=== PATIENT | female | born 1995 | race Caucasian/White ===

== ENCOUNTER → 2017-02-19 | Outpatient (REF) | payer BC | LOC: M SFHCWAGY 14:27 | PROVIDERS: ATTEND Nurse Practitioner Women's Health | DX: Z12.4 Encounter for screening for malignant neoplasm of cervix (principal) ==

== ENCOUNTER → 2019-09-09 | Outpatient (CLI) | payer BC ==
[2019-09-09 13:09] LABS: BASO % 0.5 % (0.0-1.0); EOS # 0.1 10^3/uL (0.0-0.5); EOS % 1.1 % (0.0-3.0); HEMATOCRIT 40.1 % (36.0-47.0); HEMOGLOBIN 13.6 g/dl (12.0-15.5); LYMPH # 1.9 10^3/uL (1.5-5.0); LYMPH % 23.7 % (24.0-44.0); MEAN CORPUSCULAR HGB CONC 33.9 g/dl (32.0-36.5); MEAN CORPUSCULAR VOLUME 91.3 fl (80.0-96.0); MONO # 0.6 10^3/uL (0.0-0.8); MONO % 7.9 % (0.0-5.0); NEUTROPHILS # 5.3 10^3/uL (1.5-8.5); NEUTROPHILS % 66.4 % (36.0-66.0); PLATELET COUNT, AUTOMATED 216 10^3/uL (150-450); RED BLOOD COUNT 4.39 10^6/uL (4.00-5.40)
[2019-09-09 14:43] LABS: HEPATITIS C VIRUS ABY INDEX 0.1 INDEX (<0.8); HIV 1&2 SCREEN CENTAUR NEGATIVE (NEGATIVE); RUBELLA IgG QUALITATIVE IMMUNE (IMMUNE)
== END ==
LOC: M SMT 11:53
PROVIDERS: ATTEND Advanced Practice Midwife
DX: Z3A.09 9 weeks gestation of pregnancy (principal); Z34.81 Encounter for supervision of other normal pregnancy, first trimester

== ENCOUNTER → 2019-10-07 | Outpatient (CLI) | payer BC ==
[2019-10-07 20:26] LABS: CHLAMYDIA DNA AMPLIFICATION NEGATIVE (NEGATIVE); GC DNA AMPLIFICATION NEGATIVE (NEGATIVE)
== END ==
LOC: M SMT 13:48
PROVIDERS: ATTEND Advanced Practice Midwife
DX: Z34.82 Encounter for supervision of other normal pregnancy, second trimester (principal); Z3A.00 Weeks of gestation of pregnancy not specified

== ENCOUNTER → 2019-12-07 | Outpatient (CLI) | payer BC ==
--- NOTE | 2019-12-07 19:32 | REP ---
Clinical: Anatomical evaluation. Comparison: None . Findings: Examination demonstrates a single live intrauterine in variable presentation. motion is identified by technologist. Placenta is noted anterior and grade zero without evidence for placenta previa or abruption. Amniotic fluid volume is normal. Cervix measures 4.6 cm in length and appears closed. No evidence for nuchal cord. Gestational age by LMP 22 weeks 0 days with CHAYITO 04/11/2020 . Gestational age by current measurements 22 weeks 4 days with CHAYITO 04/07/2020 . FHR equals 150 beats per minute. BPD 5.4 cm 22 weeks 3 days HC 20.0 cm 22 weeks 1 day AC 17.7 cm 22 weeks 4 days FL 3.8 cm 22 weeks 2 days HL 3.8 cm 23 weeks 1 day HC/AC ratio 1.13 Estimated weight 501 grams ( 59th percentile). Anatomical assessment demonstrates normal structures including cranium, choroid plexus, cavum, cerebellum/posterior fossa, facial features, lungs, diaphragm, stomach, cord insertion/three-vessel cord, kidneys/bladder, spine, and extremities. Impression: Single live intrauterine in variable presentation demonstrating appropriate interval growth. 2. Limited evaluation of the heart/ventricular outflow tracts. The vein of the anatomical assessment is complete and normal. Electronically Signed by Calos Perez MD 12/07/2019 07:23 P
== END ==
LOC: M RAD 13:27
PROVIDERS: ATTEND Obstetrics & Gynecology
DX: Z34.80 Encounter for supervision of other normal pregnancy, unspecified trimester (principal); Z3A.22 22 weeks gestation of pregnancy

== ENCOUNTER → 2020-01-01 | Outpatient (CLI) | payer BC ==
--- NOTE | 2020-01-01 14:25 | REP ---
OB ULTRASOUND: Real-time sonographic evaluation of gravid uterus performed. There is a single living intrauterine gestation. Estimated gestational age is 25 weeks 4 days, EDC 04/11/2020. Today's measurements indicate appropriate growth. Biometry and Growth: BPD 65 mm = 26 weeks 2 days, 64th percentile HC 233 mm = 45 weeks 2 days, 45th percentile AC 211 mm = 25 weeks 4 days, 50th percentile FL 49 mm = 26 weeks 3 days, 70th percentile HC/AC ratio 1.10 within normal range. Estimated weight 872 grams 53rd percentile. Visualized anatomy today includes upper lip, stomach, cord insertion, three-vessel cord, kidneys, gallbladder and spine which are all grossly unremarkable. Cervical length: Closed and measures 3.7 cm in length. heart rate: 144 beats per minute. position: Vertex. Placenta: Anterior and grade 1 with no previa or abruption. Amniotic fluid: Appears within normal limits. Four chamber heart and ventricular outflow tracts are not visualized on today's exam once again.
== END ==
LOC: M WHC 10:59
PROVIDERS: ATTEND Advanced Practice Midwife
DX: Z34.02 Encounter for supervision of normal first pregnancy, second trimester (principal); Z3A.25 25 weeks gestation of pregnancy; Z36.2 Encounter for other antenatal screening follow-up

== ENCOUNTER → 2020-01-18 | Outpatient (REF) | payer BC ==
[2020-01-18 17:28] LABS: HEMATOCRIT 35.6 % (36.0-47.0); HEMOGLOBIN 11.6 g/dl (12.0-15.5); MEAN CORPUSCULAR HGB CONC 32.6 g/dl (32.0-36.5); MEAN CORPUSCULAR VOLUME 95.2 fl (80.0-96.0); PLATELET COUNT, AUTOMATED 169 10^3/uL (150-450); RED BLOOD COUNT 3.74 10^6/uL (4.00-5.40); WHITE BLOOD COUNT 9.5 10^3/uL (4.0-10.0)
== END ==
LOC: M PLALAB 13:47
PROVIDERS: ATTEND Advanced Practice Midwife
DX: Z34.02 Encounter for supervision of normal first pregnancy, second trimester (principal); Z36.89 Encounter for other specified antenatal screening

== ENCOUNTER → 2020-02-01 | Outpatient (CLI) | payer BC ==
--- NOTE | 2020-02-01 19:14 | REP ---
Obstetric sonography: History: Supervision of , followup anatomy. Comparison study January 01, 2020. Findings: Scanning through the gravid uterus demonstrates a viable single intrauterine gestation in a cephalic lie. motion is observed and heart rate is recorded at 138 beats per minute. An anterior grade 1 placenta is seen without evidence of previa or abruption. Amniotic fluid is subjectively normal. Closed cervical length is 3.1 cm measured transabdominally. There has been appropriate interval growth. No anomaly is appreciated. The following anatomic structures are identified today and felt to be unremarkable: cranium, facial profile, four-chamber heart with left and right ventricular outflow tract views, diaphragm, left-sided stomach, abdominal wall cord insertion, three-vessel cord, kidneys and bladder. In conjunction with prior studies, anatomic survey is felt to be complete. Biometry chart: BPD 7.7 cm = 30 weeks 6 days HC 27.6 cm = 30 weeks 1 day AC 25.6 cm = 29 weeks 5 days FL 5.9 cm = 30 weeks 5 days HL 5.3 cm = 30 weeks 6 days HC/AC ratio normal 1.08. Cephalic index normal 0.79. Estimated weight 1533 grams, 3 pounds 6 ounces, 45th percentile for 30 weeks 1 day. SUSAN normal 14.1 cm. Impression: Viable single intrauterine gestation at 30 weeks 1 day by today's composite sonographic criteria. CHAYITO by today's sonography April 10, 2020. anatomic survey is felt to be complete in conjunction with comparison study.
== END ==
LOC: M WHC 13:28
PROVIDERS: ATTEND Advanced Practice Midwife
DX: Z34.03 Encounter for supervision of normal first pregnancy, third trimester (principal); Z36.2 Encounter for other antenatal screening follow-up; Z3A.30 30 weeks gestation of pregnancy

== ENCOUNTER → 2020-03-15 | Outpatient (REF) | payer BC | LOC: M SFHCWAGY 17:00 | PROVIDERS: ATTEND Advanced Practice Midwife | DX: Z36.89 Encounter for other specified antenatal screening (principal); Z3A.00 Weeks of gestation of pregnancy not specified ==

== ENCOUNTER 2020-04-08 17:49 | Inpatient (IN) | payer BC ==
[2020-04-08] VITALS (15 sets, daily range): BP systolic 122–178; BP diastolic 65–116
[~2020-04-08] VITALS: Ht 157.5 cm; Wt 90.7 kg
[2020-04-08] MEDS ORDERED: STUACAP PO (17:56)
[2020-04-08 19:04] LABS: HEMATOCRIT 36.4 % (36.0-47.0); HEMOGLOBIN 12.2 g/dl (12.0-15.5); MEAN CORPUSCULAR HEMOGLOBIN 31.3 pg (27.0-33.0); MEAN CORPUSCULAR HGB CONC 33.5 g/dl (32.0-36.5); MEAN CORPUSCULAR VOLUME 93.3 fl (80.0-96.0); PLATELET COUNT, AUTOMATED 130 10^3/uL (150-450); WHITE BLOOD COUNT 8.6 10^3/uL (4.0-10.0)
[2020-04-08 19:12] LABS: CREATININE,RANDOM URINE 15.6 MG/DL; TOTAL PROTEIN,RANDOM URINE 9.8 MG/DL (0.0-12.0)
[2020-04-08 19:27] LABS: ALT/SGPT 23 U/L (12-78); BILIRUBIN,TOTAL 0.3 MG/DL (0.2-1.0); CREATININE FOR GFR 0.47 MG/DL (0.55-1.30); GLOMERULAR FILTRATION RATE > 60.0 (>60); LDH LACTATE DEHYDROGENASE 150 U/L (84-246); URIC ACID 5.3 MG/DL (2.6-6.0)
[2020-04-08] MEDS ORDERED: LACTATED RINGER'S 1000 ML IV STA (19:46)
--- NOTE | 2020-04-08 20:01 | HPEPDOC ---
Obstetrical History & Physical General Date of Admission April 08, 2020 at 19:40 History of Present Illness Chief Complaint: Gestational Hypertension Information Provided By: Patient Age: 24 : 1 Term: 0 Pre-term: 0 Abortions: 0 Livin Care Care: Good Care Dating Final EDC: April 11, 2020 Final EDC by: LMP EGA at Admission: 39 (+4) Antepartum Course Height (inches): 62 Pre- weight (lbs.): 160 Admission Weight (lbs.): 194.8 Past Medical History Past Obstetrical History : Past Obstetrical History: [employer] History: History of STD (chlamydia) Past Medical History Surgical History: Denies/None Family History Significant Family History: Cancer, Diabetes, Heart disease Social History Marital Status: Single Family situation: Spouse/partner home Psychosocial History: No pertinent psych hx * Smoker: former Smoker (quit x 5 yrs) Alcohol: Denies Drugs: denies Abuse Violence Screening Have you been hit/kicked/slapp: No Have you been sexually assault: No Imunizations Tdap status: current Allergies Coded Allergies: No Known Allergies (Unverified , 04/08/20) Medications Miscellaneous Medications Pnv No.63/Iron,Carb/Folic/Dha (Thomas One Capsule) 1 Each Capsule, 1 CAP PO Physical Examination Physical Examination GENERAL: Alert and oriented times three. BREAST: . ABDOMEN: Gravid and non-tender to touch. FETUS: Is vertex (VTX) by sterile vaginal examination (SVE), fetus is vertex (VTX) by Nicolas. HEART RATE: Regular rate and rhythm. LUNGS: Clear to auscultation (CTA). EXTREMITIES: No edema. No clonus. Deep tendon reflexes (DTRs) + 2. Vital Signs/I&O Vital Signs Date Time Temp Pulse Resp B/P (MAP) Pulse Ox O2 Delivery O2 Flow Rate FiO2 04/08/20 19:07 96 134/91 (105) 04/08/20 18:03 96.2 18 Room Air Laboratory Data 24H LABS Laboratory Tests 2 04/08/20 00:00: Urine Random Creatinine 15.6, Urine Random Total Protein 9.8 04/08/20 18:31: Glomerular Filtration Rate > 60.0, Uric Acid 5.3, Total Bilirubin 0.3, Aspartate Amino Transf (AST/SGOT) 16, Alanine Aminotransferase (ALT/SGPT) 23, Lactate Dehydrogenase 150 04/08/20 18:45: Nucleated Red Blood Cells % (auto) 0.0 CBC/BMP Laboratory Tests 04/08/20 18:31 04/08/20 18:45 Pertinent Laboratoy Data Blood Type: O+ RBC Antibody Screen: Negative HIV: Negative Hepatitis B: Negative Hepatitis C: Negative Rapid Plasma Reagin: Nonreactive Rubella: Immune Chlamydia/Gonorrhea: Negative Group B Streptococcus: Negative Glucose Tolerance Test: 121 Diag/Inter Therapy Panorama low risk male Anatomy Ultrasound Ultrasound Date: Dec 07, 2019 Placenta Location: Anterior Normal Anatomy: Yes Placenta Previa: No Estimated Weight (grams): 501 (59%) Other Ultrasounds 09/02/19 dating 9w4d Steroid Therapy Steroid Therapy: No Vaginal Examination Dilation: 1cm Effacement: 50% Station: -3 Cervical Consistency: Medium Cervical Position: Posterior Presentation: Cephalic presentation Assessment Heart Rate (FHR): 135 Variability: Moderate Accelerations: Positive Decelerations: None Tocometer Contractions: Yes Frequency: every 3-7 min. Strength: palpated as mild Assessment/Plan Assessment Anila is a 24-year-old (G)1 para (P)0-0-0-0 at 39+4 weeks by 9-week ultrasound. Presents to Labor and Delivery (L&D) with complaints of decreased movement. Upon arrival she was noted to have multiple blood pressures in 140's/90's range. Denies severe features. Labs WNL except urine ratio 0.63. Cat I tracing. Denies regular UC, LOF or bleeding. Plan Admit and orient per consult Dr Sales. Welder Gun and consent. Diet: regular. Group B Streptococcus (GBS) negative. Labs and intravenous (IV) per unit protocol. Counseled on misoprostol, Pitocin and induction of labor (IOL). Lactated Ringers (LR): Bolus 500 mL, then at 125 mL/hr. Plans to labor ad shanice. Counseled regarding epidural vs IV pain meds. Anticipate normal spontaneous delivery (). C-S as appropriate. Monie Dugan CNM April 08, 2020 20:01
[2020-04-08] MEDS: miSOPROStol 50 MCG 1/2 TAB (S0191) PO SCH (20:09)
[2020-04-08] MEDS ORDERED: hydrOXYzine 50 MG TAB PO SCH (21:00)
[2020-04-09] VITALS (39 sets, daily range): BP systolic 98–145; BP diastolic 52–88
[2020-04-09] MEDS: miSOPROStol 50 MCG 1/2 TAB (S0191) PO SCH ×3 (00:11→08:23)
[2020-04-09] MEDS ORDERED: OXYTOCIN DRIP 30 UNITS in IV 1 EA IV SCH (13:30)
[2020-04-09] MEDS: LR 1,000 ML IV SCH (13:37)
--- NOTE | 2020-04-09 18:37 | IPNPDOC ---
Obstetrical Progress Note Date of Service April 09, 2020 Subjective Has received 4 doses of misoprostol. Currently on Pitocin at 6 units Objective Vital Signs Date Time Temp Pulse Resp B/P (MAP) Pulse Ox O2 Delivery O2 Flow Rate FiO2 04/09/20 05:20 101 122/83 (96) 04/09/20 04:50 97.7 04/08/20 18:03 18 Room Air Assessment Variability: Moderate Accelerations: Positive Heart Rate Tracing: Category I Tocometer Contractions: Yes Frequency: regular Sterile Vaginal Examination Dilation: 1cm Effacement (%): 70% Station: -3 Cervical Consistency: Soft Cervical Position: Posterior Postion/Presentation: Cephalic presentation Assessment and Plan Age: 24 : 1 Status: Reassuring Anticipate: Vaginal Delivery (Cook's catheter in place. 60 mL/30 mL) CONNIE HERCULES MD. April 09, 2020 18:37
[2020-04-09] MEDS ORDERED: BUTORPHANOL 2 MG/ML INJ (J0595) IV ONE (18:45)
[2020-04-09] MEDS ORDERED: PROMETHAZINE INJ 25 MG/ML VIAL (J2550) IV PRN (18:45)
[2020-04-10] VITALS (30 sets, daily range): BP systolic 120–153; BP diastolic 67–108
[2020-04-10] MEDS ORDERED: PROMETHAZINE INJ 25 MG/ML VIAL (J2550) IV ONE (01:15)
[2020-04-10] MEDS ORDERED: BUTORPHANOL 2 MG/ML INJ (J0595) IV ONE (01:15)
[2020-04-10] MEDS ORDERED: FENTANYL 2MCG/ML ROPIVACAINE 0.2% IN 0.9% NACL 100ML IVBAG As Ordered ONE ×2 (04:21→13:12)
[2020-04-10] MEDS ORDERED: PENICILLIN G POTASSIUM IV 5 MU in D5W MINI-BAG PLUS 100 ML IV ONE (06:15)
[2020-04-10] MEDS ORDERED: ePHEDrine SULFATE 25 MG/5 ML(5MG/ML) SYRINGE As Ordered ONE (06:16)
[2020-04-10] MEDS: LR 1,000 ML IV SCH ×3 (07:50→20:31)
[2020-04-10] MEDS ORDERED: PENICILLIN G POTASSIUM IV 2.5 MU in IV 1 EA IV SCH (10:15)
[2020-04-10] MEDS ORDERED: EPIDURAL/PCA KEYS XX PRN (13:45)
[2020-04-10] MEDS ORDERED: ePHEDrine SULFATE 25 MG/5 ML(5MG/ML) SYRINGE IV PRN (13:45)
[2020-04-10] MEDS ORDERED: EPIDURAL COMMENT XX SCH (13:45)
[2020-04-10] MEDS ORDERED: ONDANSETRON 4MG/2ML VIAL IV PRN ×4 (13:45→20:45)
[2020-04-10] MEDS ORDERED: REFRIGERATOR IV KEYS XX PRN (13:45)
[2020-04-10] MEDS ORDERED: NALOXONE INJ 0.4MG/1ML VIAL (J2310 PER 1MG) IV PRN ×3 (13:45→19:47)
[2020-04-10] MEDS ORDERED: LACTATED RINGER'S 1000 ML IV PRN (13:45)
[2020-04-10] MEDS ORDERED: FENTANYL/ROPIVACAINE/NACL BAG 100 ML EPIDURAL SCH (13:45)
[2020-04-10] MEDS ORDERED: diphenhydrAMINE 50MG/ML VIAL (J1200) IV PRN ×2 (13:45→19:47)
[2020-04-10] MEDS ORDERED: AZITHROMYCIN INJ 500MG VIAL (J0456 PER 500MG) As Ordered ONE (18:29)
[2020-04-10] MEDS ORDERED: ceFAZolin 2 GM/D5W 50 ML IV BAG (J0690 PER 500MG) As Ordered ONE (18:30)
[2020-04-10] MEDS ORDERED: AZITHROMYCIN INJ 500 MG, VIAL MATE ADAPTER 1 EACH in D5W 250 ML IV ONE (18:30)
[2020-04-10] MEDS ORDERED: BICITRA 30ML SOLN UDC PO ONE (18:30)
[2020-04-10] MEDS ORDERED: ceFAZolin SOD 2 GM in IV 1 EA IV ONE (18:30)
[2020-04-10] MEDS ORDERED: BICITRA 30ML SOLN UDC As Ordered ONE (18:30)
--- NOTE | 2020-04-10 18:30 | IPNPDOC ---
Obstetrical Progress Note Date of Service April 10, 2020 Subjective Replacement pushing now for over 2 hours with no descent current exam complete, complete and 0 station currently category 1 tracing Objective Vital Signs Date Time Temp Pulse Resp B/P (MAP) Pulse Ox O2 Delivery O2 Flow Rate FiO2 04/10/20 11:40 108 134/83 (100) 04/10/20 11:19 98.2 18 04/10/20 07:28 Room Air Assessment Variability: Moderate Heart Rate Tracing: Category I Tocometer Contractions: Yes Frequency: regular Sterile Vaginal Examination Dilation: complete Effacement (%): 100% Station: 0 Assessment and Plan Age: 24 : 1 Status: Reassuring Anticipate: Section (patient's been thoroughly counseled in regards to her diagnoses arrest of descent discuss further active management versus proceeding with section. Discussed risks of both and after counseling, patient has decided to proceed with section secondary to arrest of descent) CONNIE HERCULES MD. April 10, 2020 18:30
[2020-04-10] MEDS ORDERED: LIDOCAINE 2% W/EPIN INJ 20ML **PRES FREE As Ordered ONE (19:07)
[2020-04-10] MEDS ORDERED: OXYTOCIN 30 UNITS IN 0.9% NaCl 500ML IV BAG (J2590) As Ordered ONE ×2 (19:31→20:42)
[2020-04-10] MEDS ORDERED: ONDANSETRON 4MG/2ML VIAL As Ordered ONE (19:43)
[2020-04-10] MEDS ORDERED: KETOROLAC 60 MG/2 ML VIAL As Ordered ONE (19:44)
[2020-04-10] MEDS ORDERED: MORPHINE PRES-FREE INJ 10 MG/10 ML VIAL (J2274) As Ordered ONE (19:46)
[2020-04-10] MEDS ORDERED: NALBUPHINE HCL 10 MG/ML AMP (J2300) IV PRN (19:47)
[2020-04-10] MEDS ORDERED: METOCLOPRAMIDE INJ 10MG/2ML VIAL (J2765 PER 1) IV PRN ×2 (19:47→20:45)
[2020-04-10] MEDS ORDERED: LIDOCAINE PRES-FREE 2% 10ML AMP As Ordered ONE (20:12)
[2020-04-10] MEDS ORDERED: OXYTOCIN DRIP 30 UNITS in IV 1 EA IV SCH (20:31)
--- NOTE | 2020-04-10 20:35 | ROOPDOC ---
[facility] Report Of Operation Report of Operation DATE OF PROCEDURE: 04/10/20 SURGEON: Fabiana Sales M.D. GRAIN MANAGER: Grace Casiano MD ANESTHESIA: Epidural PREOPERATIVE DIAGNOSIS:, Arrest of descent POSTOPERATIVE DIAGNOSIS: Arrest of descent ESTIMATED BLOOD LOSS: 500 mL URINE OUTPUT:. 325 mL INTRAVENOUS FLUIDS: 1500 mL PREOPERATIVE ANTIBIOTICS:. 2 g of Ancef and 500 mg azithromycin OPERATIVE FINDINGS: Liveborn male infant, Apgars 7 and 8. Weight was, 4020 g or 8 lbs. 14 oz. SPECIMENS: None INDICATIONS FOR PROCEDURE: 24-year-old 1 who presented at 38 weeks for induction of labor secondary to gestational hypertension. She began pushing at complete, complete, -1 station. She pushed for approximately 2 hours with minimal descent, which time patient was counseled for management options for management of labor versus a section, desired to proceed with section with indication of arrest of descent DESCRIPTION OF PROCEDURE: After informed consent was obtained and written consent was reviewed. The patient was brought to the operating room where spinal anesthesia was placed. She was then placed in the supine position with a left lateral tilt. Macdonald catheter was placed and to gravity. Patient was then prepped and draped in the normal sterile fashion. A timeout operating room was performed identifying the patient, procedure be performed as well as drug allergies. Anesthesia was tested and deemed to be adequate. Pfannenstiel skin incision was made and this was carried down to the underlying rectus fascia. The fascia was then scored and this incision was extended bilaterally. The fascia was then dissected off the underlying rectus muscle superiorly and inferiorly. The rectus muscles were then in the midline. The peritoneum is then entered. Vesicouterine peritoneum was then tented and excised and a bladder flap was created. Mobius retractor was then placed. Next, a curvilinear incision was then made in the lower uterine segment. Amniotomy was performed, productive, clear fluid. The head was brought to the level of the incision atraumatically and delivered along the shoulders and corpus. The cord was clamped 2. The was brought over to the warmer with a good cry. Placenta was drained and delivered grossly intact. The uterus was cleared of all clots and debris and the uterine incision was then closed in 2 layers using 0 Vicryl, first in a running locking fashion followed by second layer for imbrication. The abdomen suctioned. Surgical sites reinspected and noted be hemostatic. The retractor was then removed. The anterior peritoneum was then reapproximated with 3-0 Vicryl. The rectus muscles were reapproximated 3-0 Vicryl. The fascia was then closed using 0 Vicryl in a running nonlocking fashion. The subcutaneous tissues was then irrigated and suctioned. Subcutaneous tissue was reapproximated using 3-0 Vicryl. Several subdermal stitch is placed using 3-0 Vicryl and the skin was closed with 4-0 Monocryl and subcuticular fashion. This incision was then cleaned and dried and was dressed. The patient was then taken to recovery in stable condition. All counts were correct. My surgical services director Dr. Grace Byrnes played in an essential role during the operation. They assisted with tissue identification retraction, delivery of the , as well as wound closure. FABIANA SALES MD. April 10, 2020 20:35
[2020-04-10] MEDS ORDERED: LR 1,000 ML IV SCH (20:45)
[2020-04-10] MEDS ORDERED: fentaNYL 100 MCG/2 ML INJECTION (J3010) IV PRN (20:45)
[2020-04-10] MEDS ORDERED: RHOGAM 300 MCG (1500 IU) INJ (J2790) IM SCH (20:45)
[2020-04-10] MEDS ORDERED: PERCOCET 5MG/325MG TAB PO PRN ×2 (20:45)
[2020-04-10] MEDS ORDERED: MOM 30ML SUSPENSION UDC PO PRN (20:45)
[2020-04-10] MEDS ORDERED: MEASLES,MUMPS,RUBELLA VACCINE INJ (MMR-II) (90707) SC SCH (20:45)
[2020-04-10] MEDS ORDERED: ANUSOL HC CREAM 30GM TOP PRN (20:45)
[2020-04-10] MEDS ORDERED: KETOROLAC 30 MG/ML 1ML VIAL IV PRN (20:45)
[2020-04-10] MEDS: DOCUSATE SODIUM 100 MG CAP PO SCH (21:00)
[2020-04-10] MEDS: PERCOCET 5MG/325MG TAB PO PRN (22:50)
[2020-04-11] VITALS (7 sets, daily range): BP systolic 112–131; BP diastolic 64–87
[2020-04-11] MEDS: KETOROLAC 30 MG/ML 1ML VIAL IV SCH ×4 (01:59→14:24)
[2020-04-11] MEDS: LR 1,000 ML IV SCH ×2 (05:00→09:54)
[2020-04-11] MEDS ORDERED: IBUP80TA PO (07:04)
[2020-04-11] MEDS ORDERED: PERCOCET PO (07:04)
[2020-04-11 07:33] LABS: HEMATOCRIT 29.1 % (36.0-47.0); HEMOGLOBIN 9.6 g/dl (12.0-15.5); MEAN CORPUSCULAR HEMOGLOBIN 31.3 pg (27.0-33.0); MEAN CORPUSCULAR VOLUME 94.8 fl (80.0-96.0); PLATELET COUNT, AUTOMATED 120 10^3/uL (150-450); RED BLOOD COUNT 3.07 10^6/uL (4.00-5.40); WHITE BLOOD COUNT 12.8 10^3/uL (4.0-10.0)
[2020-04-11] MEDS: PRENATAL VITAMINS CHEWABLE TABLET PO SCH (07:52)
[2020-04-11] MEDS: PERCOCET 5MG/325MG TAB PO PRN ×3 (07:52→20:32)
[2020-04-11] MEDS: DOCUSATE SODIUM 100 MG CAP PO SCH ×2 (07:53→20:31)
--- NOTE | 2020-04-11 09:16 | IPNPDOC ---
Progress Note Date of Service: April 11, 2020 Day#: 1 Progress Note SUBJECT: Doing well without complaints. Ambulating, voiding and pain is well- controlled. Reports minimal lochia. +breast feeding OBJECTIVE: VITAL SIGNS: Within normal limits, afebrile. Alert and oriented times three. Abdomen: Fundus firm at U-2. Soft, NTTP. Incision: Clean, dry, intact dressed Ext: neg calf tenderness. ASSESSMENT: day/postoperative #1 status post primary section for arrested descent. Recovering in stable condition. PLAN: 1. Continue routine care/postoperative care 2. Discharge plans for tomorrow VS, I&O, 24H, Fishbone Vital Signs/I&O Vital Signs Date Time Temp Pulse Resp B/P (MAP) Pulse Ox O2 Delivery O2 Flow Rate FiO2 04/11/20 07:52 18 04/11/20 06:01 97.3 95 115/64 (81) 96 Room Air I&O- Last 24 Hours up to 6 AM 04/11/20 06:00 Intake Total 4000 ml Output Total 1500 ml Balance 2500 ml Laboratory Data 24H LABS Laboratory Tests 2 04/11/20 07:17: Nucleated Red Blood Cells % (auto) 0.0 CBC/BMP Laboratory Tests 04/11/20 07:17 CONNIE HERCULES MD. April 11, 2020 09:16
[2020-04-11] MEDS: IBUPROFEN 800 MG TAB PO SCH (15:32)
[2020-04-12] MEDS: IBUPROFEN 800 MG TAB PO SCH ×2 (00:16→07:53)
[2020-04-12 02:00] VITALS: BP 133/84
[2020-04-12 06:00] VITALS: BP 131/84
[2020-04-12] MEDS: DOCUSATE SODIUM 100 MG CAP PO SCH (07:52)
[2020-04-12] MEDS: PRENATAL VITAMINS CHEWABLE TABLET PO SCH (07:52)
[2020-04-12 10:00] VITALS: BP 136/80
--- NOTE | 2020-04-12 10:04 | DS.PDOC ---
Discharge Summary General Date of Admission April 08, 2020 at 19:40 Date of Discharge 04/12/20 Attending Physician: CONNIE HERCULES MD. Discharge Summary PROCEDURES PERFORMED DURING STAY: primary section. ADMITTING DIAGNOSES: 1. . DISCHARGE DIAGNOSES: 1. Day 2 postoperative. COMPLICATIONS/CHIEF COMPLAINT: LABOR. HISTORY OF PRESENT ILLNESS: . HOSPITAL COURSE: uncomplicated. DISCHARGE MEDICATIONS: Please see below. ALLERGIES: Please see below. PHYSICAL EXAMINATION ON DISCHARGE: VITAL SIGNS: Please see below. GENERAL: A+O x3. CARDIOVASCULAR EXAMINATION: regular rate and rhythm with no murmurs. RESPIRATORY EXAMINATION: regular rage and rhythm with no use of accessory muscles. ABDOMINAL EXAMINATION: Incision dressing is intact with no drainage. EXTREMITIES: generalized edema SKIN: warm, dry, intact with no rashes or lesions. LABORATORY DATA: Please see below. ACTIVITY: As tolerated-pelvic rest. DIET: regular DISCHARGE INSTRUCTIONS: 1. Discharge to home. 2. Education done on mastitis, hemorrhage, DVT, pain management, signs of infection, care of her incision and removal of dressing, depression, expected changes, and other danger signs to call office with. 3. Patient is to make an appointment in the office for 6-8 weeks postoperative. DISCHARGE CONDITION: Stable. TIME SPENT ON DISCHARGE: Greater than minutes. Vital Signs/I&Os Vital Signs Date Time Temp Pulse Resp B/P (MAP) Pulse Ox O2 Delivery O2 Flow Rate FiO2 04/12/20 06:00 97.1 84 18 131/84 (100) 98 Room Air I&O- Last 24 Hours up to 6 AM 04/12/20 06:00 Intake Total 1375 ml Output Total 700 ml Balance 675 ml Discharge Medications Scheduled Ibuprofen (Ibuprofen) 800 Mg Tablet, 800 MG PO Q8H Scheduled PRN Oxycodone/Acetaminophen (Oxycodone-Acetaminophen 5-325) 1 Each Tablet, 1-2 TAB PO Q6HP PRN for MILD/MODERATE PAIN (PS 1-7) Miscellaneous Medications Pnv No.63/Iron,Carb/Folic/Dha (Thomas One Capsule) 1 Each Capsule, 1 CAP PO, (Reported) Allergies Coded Allergies: No Known Allergies (Unverified , 04/08/20) KEVIN ESTEVES CNM April 12, 2020 10:04
[2020-04-12] MEDS ORDERED: OXYC1TAB23 PO (13:35)
[2020-04-12] MEDS ORDERED: IBUP80TA PO (13:37)
[2020-04-12] MEDS ORDERED: COLA100C5 PO (13:37)
== END 2020-04-12 12:30 | disposition home or self-care (01) | DRG 540 ==
LOC: M LDO 17:49 → M LDI 19:40 → M OBS 04-10 22:42
PROVIDERS: ADMIT Advanced Practice Midwife; ATTEND Advanced Practice Midwife
PROC: 3E0P7GC Introduction of Other Therapeutic Substance into Female Reproductive, Via Natural or Artificial Opening (ICD-10-PCS; 2020-04-08)
PROC: 10D00Z1 Extraction of Products of Conception, Low, Open Approach (ICD-10-PCS; principal; 2020-04-10 18:28)
DX: O13.4 Gestational [pregnancy-induced] hypertension without significant proteinuria, complicating childbirth (principal); Z3A.38 38 weeks gestation of pregnancy; O64.0XX0 Obstructed labor due to incomplete rotation of fetal head, not applicable or unspecified; Z37.0 Single live birth

== ENCOUNTER → 2020-09-15 | Outpatient (REF) | payer OTHER ==
[~2020-09-15] MED LIST: COLA100C5 PO; IBUP80TA PO; OXYC1TAB23 PO; PERCOCET PO; STUACAP PO
== END ==
LOC: M SFHCWAGY 16:56
PROVIDERS: ATTEND Nurse Practitioner Women's Health
DX: Z12.4 Encounter for screening for malignant neoplasm of cervix (principal); Z01.419 Encounter for gynecological examination (general) (routine) without abnormal findings

== ENCOUNTER → 2021-03-03 | Outpatient (REF) | payer OTHER ==
[2021-03-03 17:53] LABS: HEMATOCRIT 40.6 % (36.0-47.0); HEMOGLOBIN 13.3 g/dl (12.0-15.5); MEAN CORPUSCULAR HGB CONC 32.8 g/dl (32.0-36.5); MEAN CORPUSCULAR VOLUME 91.4 fl (80.0-96.0); PLATELET COUNT, AUTOMATED 223 10^3/uL (150-450); RED BLOOD COUNT 4.44 10^6/uL (4.00-5.40)
[2021-03-03 18:16] LABS: ALT/SGPT 18 U/L (12-78); BILIRUBIN,TOTAL 0.2 MG/DL (0.2-1.0); CREATININE FOR GFR 0.46 MG/DL (0.55-1.30); GLOMERULAR FILTRATION RATE > 60.0 (>60); LDH LACTATE DEHYDROGENASE 112 U/L (84-246)
[2021-03-03 19:10] LABS: HEPATITIS C VIRUS ABY INDEX < 0.0 INDEX (<0.8)
[2021-03-03 19:11] LABS: HIV 1&2 SCREEN CENTAUR NEGATIVE (NEGATIVE)
== END ==
LOC: M PLALAB 14:53
PROVIDERS: ATTEND Advanced Practice Midwife
DX: O34.219 Maternal care for unspecified type scar from previous cesarean delivery (principal)

== ENCOUNTER → 2021-03-08 | Outpatient (REF) | payer OTHER | LOC: M LAB REF 15:51 | PROVIDERS: ATTEND Physician Assistant | DX: J02.9 Acute pharyngitis, unspecified (principal) ==

== ENCOUNTER → 2021-03-31 | Outpatient (CLI) | payer OTHER ==
[2021-03-31 18:00] LABS: CREATININE,RANDOM URINE 39.1 MG/DL; TOTAL PROTEIN,RANDOM URINE < 5.0 MG/DL (0.0-12.0)
== END ==
LOC: M PLALAB 15:50
PROVIDERS: ATTEND Advanced Practice Midwife
DX: O34.219 Maternal care for unspecified type scar from previous cesarean delivery (principal)

== ENCOUNTER → 2021-05-26 | Outpatient (CLI) | payer OTHER ==
--- NOTE | 2021-05-26 14:21 | REP ---
INDICATION: ANATOMY. COMPARISON: None. TECHNIQUE: Transabdominal obstetric sonography. FINDINGS: Scanning through the gravid uterus demonstrates a viable single intrauterine gestation in variable lie. motion is observed and heart rate is recorded at 150 beats per minute. A anterior placenta is seen, grade 0, without evidence of placenta previa. The placental cord insertion is marginal versus velamentous. Closed cervical length is measured at 3.4 cm transabdominally. No extrauterine abnormality is observed. Amniotic fluid is subjectively normal. No anomaly is seen. The following anatomic structures are identified and felt to be sonographically unremarkable: cranium, choroid plexus, cavum, cerebellum and posterior fossa, face and profile, lungs, four-chamber heart with left and right ventricular outflow tract views, diaphragm, left-sided stomach, abdominal wall cord insertion, three-vessel umbilical cord, kidneys and bladder, spine, and upper and lower extremities. Biometry chart: BPD 4.9 cm, 20 weeks 5 days Head circumference 17.3 cm, 19 weeks 6 days Abdominal circumference 15.0 cm, 20 weeks 2 days Femur length 3.1 cm, 19 weeks 5 days Humeral length 3.1 cm, 20 weeks 2 days HC AC ratio normal 1.15 Cephalic index normal 0.80 Estimated weight 325 g, 0 lb 11 oz, 37th percentile for 20 weeks 1 day IMPRESSION: Viable single intrauterine gestation at 20 weeks 1 days by today's composite sonographic criteria. CHAYITO by today's sonography October 12, 2021. No complication identified. Expected gestational age estimate based on known CHAYITO of October 12, 2021 is 20 weeks 1 day. Marginal versus filamentous could umbilical cord insertion on the placenta. <Electronically signed by Bairon Rolon > 05/26/21 0122
== END ==
LOC: M WHC 13:08
PROVIDERS: ATTEND Advanced Practice Midwife
DX: O34.211 Maternal care for low transverse scar from previous cesarean delivery (principal); Z3A.20 20 weeks gestation of pregnancy

== ENCOUNTER → 2021-07-31 | Outpatient (CLI) | payer OTHER ==
[2021-07-31 14:28] LABS: HEMATOCRIT 36.4 % (36.0-47.0); HEMOGLOBIN 11.8 g/dl (12.0-15.5); MEAN CORPUSCULAR HEMOGLOBIN 31.1 pg (27.0-33.0); MEAN CORPUSCULAR HGB CONC 32.4 g/dl (32.0-36.5); MEAN CORPUSCULAR VOLUME 95.8 fl (80.0-96.0); PLATELET COUNT, AUTOMATED 152 10^3/uL (150-450); WHITE BLOOD COUNT 8.4 10^3/uL (4.0-10.0)
[2021-07-31 16:30] LABS: GC DNA AMPLIFICATION NEGATIVE (NEGATIVE)
== END ==
LOC: M PLALAB 10:21
PROVIDERS: ATTEND Obstetrics & Gynecology
DX: O34.211 Maternal care for low transverse scar from previous cesarean delivery (principal)

== ENCOUNTER → 2021-08-11 | Outpatient (CLI) | payer OTHER ==
--- NOTE | 2021-08-11 14:34 | REP ---
INDICATION: CORD INSERTION. COMPARISON: May 26, 2021. TECHNIQUE: Transabdominal obstetric sonography. FINDINGS: Scanning through the gravid uterus demonstrates a viable single intrauterine gestation in cephalic lie. motion is observed and heart rate is recorded at 135 beats per minute. A anterior placenta is seen, grade 1, without evidence of placenta previa. Closed cervical length is measured at 4.5 cm transabdominally. No extrauterine abnormality is observed. Amniotic fluid is subjectively normal. SUSAN is normal at 12.4 cm.. Biometry chart: BPD 8.2 smears, 33 weeks 0 days Head circumference 29.0 cm, 32 weeks 0 days Abdominal circumference 27.8 cm, 31 weeks 6 days Femur length 6.2 cm, 32 weeks 0 days Humeral length 5.3 cm, 31 weeks 1 day HC AC ratio normal 1.04 Cephalic index normal 0.81 Estimated weight 1891 g, 4 lb 2 oz, 68th percentile for 31 weeks 1 day IMPRESSION: Viable single intrauterine gestation at 32 weeks 0 days by today's composite sonographic criteria. CHAYITO by today's sonography October 06, 2021. No complication identified. Expected gestational age estimate based on known CHAYITO of October 12, 2021 is 31 weeks 1 day. Appropriate interval growth. Marginal cord insertion on the placenta again seen. <Electronically signed by Bairon Rolon > 08/11/21 [id number]
== END ==
LOC: M WHC 13:00
PROVIDERS: ATTEND Advanced Practice Midwife
DX: O43.193 Other malformation of placenta, third trimester (principal); Z3A.31 31 weeks gestation of pregnancy

== ENCOUNTER → 2021-09-13 | Outpatient (CLI) | payer OTHER ==
--- NOTE | 2021-09-13 14:03 | REP ---
INDICATION: R/O VASA PREVIA COMPARISON: 08/11/2021 TECHNIQUE: Transabdominal obstetrical ultrasound with color Doppler evaluation. FINDINGS: Examination demonstrates a single live intrauterine in cephalic presentation. motion is identified by technologist. Placenta is noted anterior and grade 2 without evidence for placenta previa or abruption. No evidence for vasa previa. Amniotic fluid volume is normal. Cervix measures 4.7 cm in length and appears closed. Selected gestational age: 35 weeks 6 days with CHAYITO 10/12/2021. FHR equals 144 beats per minute. SUSAN: 8.5 cm (7.7-24.9) IMPRESSION: Single live advanced gestation in cephalic presentation. Amniotic fluid volume is normal. No evidence for placenta previa or vasa previa <Electronically signed by Calos Perez > 09/13/21 1400
== END ==
LOC: M WHC 13:03
PROVIDERS: ATTEND Advanced Practice Midwife
DX: O34.211 Maternal care for low transverse scar from previous cesarean delivery (principal); Z3A.35 35 weeks gestation of pregnancy

== ENCOUNTER → 2021-09-20 | Outpatient (REF) | payer OTHER ==
[~2021-09-20] MED LIST changes: +ASPI81TA26 PO
== END ==
LOC: M SFHCWAGY 16:52
PROVIDERS: ATTEND Obstetrics & Gynecology
DX: O34.211 Maternal care for low transverse scar from previous cesarean delivery (principal)

== ENCOUNTER → 2021-09-30 | Outpatient (CLI) | payer OTHER | LOC: M LABSMTC 10:01 | PROVIDERS: ATTEND Anesthesiology | DX: Z01.812 Encounter for preprocedural laboratory examination (principal); Z11.52 Encounter for screening for COVID-19 ==

== ENCOUNTER 2021-10-05 04:01 | Inpatient (IN) | payer OTHER ==
[~2021-10-05] VITALS: Ht 157.5 cm; Wt 86.9 kg
[2021-10-05] VITALS (9 sets, daily range): BP systolic 108–144; BP diastolic 60–92
[2021-10-05] MEDS ORDERED: LACTATED RINGER'S 1000 ML IV STA (04:36)
[2021-10-05] MEDS ORDERED: OXYTOCIN INJ 10 UNITS/ML VIAL (J2590) IM PRN (04:40)
[2021-10-05] MEDS ORDERED: CARBOPROST TROMETHAMINE 250 MCG/ML AMP IM PRN (04:40)
[2021-10-05] MEDS ORDERED: LIDOCAINE 1% MDV 20ML VIAL INFIL PRN (04:40)
[2021-10-05] MEDS ORDERED: LR 1,000 ML IV SCH ×3 (04:40→07:40)
[2021-10-05] MEDS ORDERED: OXYTOCIN DRIP 30 UNITS in IV 1 EA IV PRN ×4 (04:40)
[2021-10-05] MEDS ORDERED: BICITRA 30ML SOLN UDC PO ONE (04:40)
[2021-10-05] MEDS ORDERED: TRANEXAMIC ACID INJection 1,000 MG in NS 100 ML IV PRN (04:40)
[2021-10-05] MEDS ORDERED: ceFAZolin SOD 2 GM in IV 1 EA IV ONE (04:40)
[2021-10-05] MEDS ORDERED: METHYLERGONOVINE MALEATE 0.2 MG/ML VIAL (J2210) IM PRN (04:40)
[2021-10-05 05:06] LABS: HEMATOCRIT 38.8 % (36.0-47.0); HEMOGLOBIN 12.7 g/dl (12.0-15.5); MEAN CORPUSCULAR HEMOGLOBIN 30.6 pg (27.0-33.0); MEAN CORPUSCULAR HGB CONC 32.7 g/dl (32.0-36.5); MEAN CORPUSCULAR VOLUME 93.5 fl (80.0-96.0); PLATELET COUNT, AUTOMATED 141 10^3/uL (150-450); RED BLOOD COUNT 4.15 10^6/uL (4.00-5.40); WHITE BLOOD COUNT 8.3 10^3/uL (4.0-10.0)
[2021-10-05] MEDS ORDERED: ePHEDrine SULFATE 25 MG/5 ML(5MG/ML) SYRINGE As Ordered ONE (05:42)
[2021-10-05] MEDS ORDERED: KETOROLAC 60MG 2ML VIAL As Ordered ONE (05:42)
[2021-10-05] MEDS ORDERED: PHENYLephrine 500MCG 5ML (100MCG/ML) SYRINGE As Ordered ONE (05:42)
[2021-10-05] MEDS ORDERED: MORPHINE PRES-FREE INJ 10 MG/10 ML VIAL (J2274) As Ordered ONE (05:42)
[2021-10-05] MEDS ORDERED: ONDANSETRON 4MG/2ML VIAL As Ordered ONE (05:42)
[2021-10-05] MEDS ORDERED: dexameTHASONE 4 MG/ML 1ML VIAL (J1100 PER 1MG) As Ordered ONE (05:42)
[2021-10-05] MEDS ORDERED: OXYTOCIN INJ 10 UNITS/ML VIAL (J2590) As Ordered ONE (05:42)
[2021-10-05] MEDS ORDERED: OXYTOCIN 30 UNITS IN 0.9% NaCl 500ML IV BAG (J2590) As Ordered ONE ×2 (05:44→06:50)
[2021-10-05] MEDS ORDERED: NALOXONE INJ 0.4MG/1ML VIAL (J2310 PER 1MG) IV PRN ×2 (06:06)
[2021-10-05] MEDS ORDERED: METOCLOPRAMIDE INJ 10MG/2ML VIAL (J2765 PER 1) IV PRN (06:06)
[2021-10-05] MEDS ORDERED: NALBUPHINE HCL 10 MG/ML AMP (J2300) IV PRN (06:06)
[2021-10-05] MEDS ORDERED: ONDANSETRON 4MG/2ML VIAL IV PRN ×3 (06:06→07:40)
[2021-10-05] MEDS ORDERED: diphenhydrAMINE 50MG/ML VIAL (J1200) IV PRN (06:06)
--- NOTE | 2021-10-05 07:26 | ROOPDOC ---
[facility] Report Of Operation Report of Operation DATE OF PROCEDURE: 10/05/21 SURGEON: Connie Sales M.D. MANAGER BEAUTY: Rosalba Romero CNM ( essential for tissue retractions, exposure and delivery of ) PROCEDURE: Repeat section PREOPERATIVE DIAGNOSIS: 1. History of prior section POSTOPERATIVE DIAGNOSIS: 1. History of prior section ANESTHESIA: Spinal ESTIMATED BLOOD LOSS: 500 mL URINE OUTPUT: 100 mL INTRAVENOUS FLUIDS:1500 mL of lactated Ringer's solution PREOPERATIVE ANTIBIOTICS:. 2 g of Ancef OPERATIVE FINDINGS: Liveborn female infant, Apgars 8 and 9. Weight 3420 g or 7 pounds 9 ounces SPECIMENS: None DESCRIPTION OF PROCEDURE: After informed consent was obtained and written consent was reviewed. The patient was brought to the operating room where spinal anesthesia was placed. She was then placed in the supine position with a left lateral tilt. Macdonald catheter was placed and to gravity. Patient was then prepped and draped in the normal sterile fashion. A timeout operating room was performed identifying the patient, procedure be performed as well as drug allergies. Anesthesia was tested and deemed to be adequate. Pfannenstiel skin incision was made and this was carried down to the underlying rectus fascia. The fascia was then scored and this incision was extended bilaterally. The fascia was then dissected off the underlying rectus muscle superiorly and inferiorly. The rectus muscles were then in the midline. The peritoneum is then entered. Vesicouterine peritoneum was then tented and excised and a bladder flap was created. Mobius retractor was then placed. Next, a curvilinear incision was then made in the lower uterine segment. Amniotomy was performed, productive, clear fluid. The head was brought to the level of the incision atraumatically and delivered along the shoulders and corpus. The cord was clamped x2. The infant was brought over to the warmer with a good cry. Placenta was drained and delivered grossly intact. The uterus was cleared of all clots and debris and the uterine incision was then closed using 0 Vicryl in a running locking fashion followed by a second layer of 0 Vicryl in a running nonlocking fashion for imbrication. The abdomen suctioned. Surgical sites reinspected and noted be hemostatic. The retractor was then removed. The anterior peritoneum was then reapproximated with 3-0 Vicryl. The rectus muscles were reapproximated 3-0 Vicryl. The fascia was then closed using 0 Vicryl in a running nonlocking fashion. The subcutaneous tissues was then irrigated and suctioned. Subcutaneous tissue was reapproximated using 3-0 Vicryl. Several subdermal stitch is placed using 3-0 Vicryl and the skin was closed with 4-0 Monocryl and subcuticular fashion. This incision was then cleaned and dried and was dressed. The patient was then taken to recovery in stable condition. All counts were correct. The couple has decided to name the Jumana. My surgical assistant certified Carol Romero played in an essential role during the operation. She assisted with tissue identification retraction, delivery of the , as well as wound closure. CONNIE SALES MD. Oct 05, 2021 07:26
[2021-10-05] MEDS ORDERED: MEASLES,MUMPS,RUBELLA VACCINE INJ (MMR-II) (90707) SC SCH (07:30)
[2021-10-05] MEDS ORDERED: SIMETHICONE 80MG CHEW TAB PO PRN (07:30)
[2021-10-05] MEDS ORDERED: OXYTOCIN DRIP 30 UNITS in IV 1 EA IV SCH (07:30)
[2021-10-05] MEDS ORDERED: RHOGAM 300 MCG (1500 IU) INJ (J2790) IM SCH (07:30)
[2021-10-05] MEDS ORDERED: MOM 30ML SUSPENSION UDC PO PRN (07:30)
[2021-10-05] MEDS ORDERED: PERCOCET 5MG/325MG TAB PO PRN ×3 (07:30→07:40)
[2021-10-05] MEDS ORDERED: fentaNYL 100 MCG/2 ML INJECTION (J3010) IV PRN (07:40)
[2021-10-05] MEDS: PRENATAL VITAMINS CHEWABLE TABLET PO SCH (09:00)
[2021-10-05] MEDS: DOCUSATE SODIUM 100MG CAPSULE PO SCH ×2 (09:00→21:49)
[2021-10-05] MEDS: KETOROLAC 30 MG/ML 1ML VIAL IV SCH ×2 (13:15→17:55)
[2021-10-06] MEDS: KETOROLAC 30 MG/ML 1ML VIAL IV SCH (00:42)
[2021-10-06 02:10] VITALS: BP_SYST 109; BP_SYST 133; BP_DIAS 57; BP_DIAS 69
[2021-10-06 06:14] VITALS: BP 113/67
[2021-10-06] MEDS ORDERED: IBUPROFEN 800 MG TAB PO SCH (08:00)
[2021-10-06 09:00] LABS: HEMATOCRIT 28.7 % (36.0-47.0); MEAN CORPUSCULAR HGB CONC 32.4 g/dl (32.0-36.5); MEAN CORPUSCULAR VOLUME 95.7 fl (80.0-96.0); PLATELET COUNT, AUTOMATED 114 10^3/uL (150-450); WHITE BLOOD COUNT 10.5 10^3/uL (4.0-10.0)
[2021-10-06 09:07] LABS: HEMOGLOBIN 9.3 g/dl (12.0-15.5)
[2021-10-06] MEDS: PRENATAL VITAMINS CHEWABLE TABLET PO SCH (09:15)
[2021-10-06] MEDS: DOCUSATE SODIUM 100MG CAPSULE PO SCH (09:15)
[2021-10-06 10:00] VITALS: BP 118/70
[2021-10-06] MEDS ORDERED: PERCOCET PO (10:56)
[2021-10-06] MEDS ORDERED: IBUP80TA PO (10:56)
--- NOTE | 2021-10-06 11:51 | DSES ---
DISCHARGE SUMMARY DATE OF ADMISSION: 10/05/2021 DATE OF DISCHARGE: 10/06/2021 DISCHARGE DIAGNOSIS: 1. Repeat section, postop day #2, stable for discharge. SURGEON: CONNIE HERCULES MD HVAC ENGINEERING TECHNICIAN: ANGELIQUE TERRY CNM HISTORY: Anila underwent repeat section. Surgery was uncomplicated. Estimated blood loss was 500 ml. She delivered a live female weighing 3420 grams. Apgars were 8 and 9. Her postoperative course has been uncomplicated. She has been out of bed for self-care, trenton-care, and infant care. She is voiding without difficulty, passing flatus, tolerating p.o. fluids and regular diet. Her pain has been very well managed with p.o. pain medications. She is requesting discharge home. OBJECTIVE: Temperature is 98.6, pulse is 87, respirations are 18, BP is 113/67. She is alert and oriented x3. Breasts are soft, nontender. Her fundus is firm at umbilicus. Her incision has the Optifoam dressing in place. There is no new drainage observed. Perineum is intact. Lochia and rubra scant. Bilateral lower extremities: Scant pitting edema. CBC preoperatively on 10/05: Hemoglobin 12.7, hematocrit 38.8, platelets 141,000. Postoperative CBC drawn this morning with a hemoglobin of 9.3, hematocrit of 28.7, and platelets of 114,000. PLAN: Discharge the patient home. She is to follow-up at [facility] in two weeks for an incision check, eight weeks for a visit. I did review breast care, incision care, trenton-care, pelvic rest, activity and lifting restrictions, danger signs to report and access to care. Prescriptions for Percocet and Ibuprofen have been e-prescribed to her pharmacy. The patient and her partner have had all of their questions answered and desire discharge home.
== END 2021-10-06 12:30 | disposition home or self-care (01) | DRG 540 ==
LOC: M LDI 04:01 → M OBS 09:32
PROVIDERS: ADMIT Obstetrics & Gynecology; ATTEND Obstetrics & Gynecology
PROC: 10D00Z1 Extraction of Products of Conception, Low, Open Approach (ICD-10-PCS; principal; 2021-10-05 06:00)
DX: O34.211 Maternal care for low transverse scar from previous cesarean delivery (principal); Z3A.39 39 weeks gestation of pregnancy; Z37.0 Single live birth

== ENCOUNTER 2021-10-11 16:41 | Emergency (ER) | payer OTHER ==
[~2021-10-11] VITALS: Ht 157.5 cm; Wt 78.7 kg
[2021-10-11] MEDS ORDERED: KETOROLAC 30 MG/ML 1ML VIAL IV ONE (19:10)
[2021-10-11] MEDS ORDERED: NS 1,000 ML IV ONE (19:10)
[2021-10-11] MEDS ORDERED: METOCLOPRAMIDE INJ 10MG/2ML VIAL (J2765 PER 1) IV ONE (19:10)
[2021-10-11] MEDS ORDERED: diphenhydrAMINE 50MG/ML VIAL (J1200) IV ONE (19:10)
[2021-10-11 19:45] LABS: HEMATOCRIT 35.1 % (36.0-47.0); HEMOGLOBIN 11.6 g/dl (12.0-15.5); MEAN CORPUSCULAR HEMOGLOBIN 30.9 pg (27.0-33.0); MEAN CORPUSCULAR VOLUME 93.6 fl (80.0-96.0); PLATELET COUNT, AUTOMATED 207 10^3/uL (150-450); RED BLOOD COUNT 3.75 10^6/uL (4.00-5.40); WHITE BLOOD COUNT 7.9 10^3/uL (4.0-10.0)
[2021-10-11 19:52] LABS: APPEARANCE, URINE CLEAR (CLEAR); BACTERIA, URINE AUTO NEGATIVE (NEGATIVE); BILIRUBIN, URINE AUTO NEGATIVE (NEGATIVE); BLOOD, URINE BLOOD 3+ (NEGATIVE); COLOR, URINE YELLOW (YELLOW); GLUCOSE, URINE (UA) AUTO NEGATIVE (NEGATIVE); KETONE, URINE AUTO NEGATIVE (NEGATIVE); LEUKOCYTE ESTERASE, URINE AUTO 1+ (NEGATIVE); NITRITE, URINE AUTO NEGATIVE (NEGATIVE); PROTEIN, URINE AUTO NEGATIVE (NEGATIVE); RBC, URINE AUTO 15 /HPF (0-3); SPECIFIC GRAVITY URINE AUTO 1.009 (1.002-1.035); SQUAMOUS EPITHELIAL CELL UR AU 3 /HPF (0-6); UROBILINOGEN, URINE AUTO 0.2 mg/dL (0.0-2.0); WBC, URINE AUTO 19 /HPF (0-3)
[2021-10-11 19:55] LABS: INR 1.05; PROTHROMBIN TIME 14.1 SECONDS (12.7-14.5)
[2021-10-11 20:13] LABS: ALBUMIN 3.2 GM/DL (3.2-5.2); ALT/SGPT 43 U/L (12-78); BILIRUBIN,DIRECT 0.1 MG/DL (0.0-0.2); BILIRUBIN,TOTAL 0.5 MG/DL (0.2-1.0); BLOOD UREA NITROGEN 15 MG/DL (7-18); CALCIUM LEVEL 9.3 MG/DL (8.5-10.1); CARBON DIOXIDE LEVEL 26 MEQ/L (21-32); CHLORIDE LEVEL 109 MEQ/L (98-107); CPK CREATINE PHOSPHOKINASE 63 U/L (26-192); GLOMERULAR FILTRATION RATE > 60.0 (>60); GLUCOSE, FASTING 87 MG/DL (70-100); MAGNESIUM LEVEL 2.3 MG/DL (1.8-2.4); POTASSIUM SERUM 3.7 MEQ/L (3.5-5.1); SODIUM LEVEL 141 MEQ/L (136-145); URIC ACID 8.4 MG/DL (2.6-6.0)
--- NOTE | 2021-10-11 20:41 | ECGEPIP ---
[facility] - ED Test Date: 2021-10-11 Pat Name: ZACHARY MAJOR Department: Room: - Gender: Female Sponge Buffer: BERTHA : 1995 Requested By: Shante Newby Order Number: [id number] Reading MD: Shante Newby Measurements Intervals [place] Rate: 86 P: 1 [place]: 122 QRS: 30 QRSD: 74 T: -1 QT: 340 QTc: 406 Interpretive Statements Normal sinus rhythm Minimal voltage criteria for LVH, may be normal variant ( R in aVL ) NSTTW abnormalities No prior Electronically Signed on 10-11-2021 20:40:36 EST by Shante Newby
[2021-10-11 20:45] VITALS: BP 140/92
[2021-10-11] MEDS ORDERED: LABETALOL 100MG TAB PO ONE (20:45)
[2021-10-11] MEDS ORDERED: LABE100T5 PO (21:32)
[2021-10-11 21:45] VITALS: BP 143/83
== END 2021-10-11 23:00 | disposition home or self-care (01) ==
LOC: M ED 16:41
DX: O16.5 Unspecified maternal hypertension, complicating the puerperium (principal); Z87.59 Personal history of other complications of pregnancy, childbirth and the puerperium; Z79.899 Other long term (current) drug therapy
CPT/HCPCS: 36415; 80048; 80076; 81001; 82550; 83735; 84550; 85027; 85610; 93005; 93041; 96361; 96374; 96375; 99285; J1200; J1885; J2765

== ENCOUNTER → 2021-10-13 | Outpatient (CLI) | payer OTHER ==
[~2021-10-13] MED LIST changes: +LABE100T5 PO
[2021-10-13 17:37] LABS: HEMOGLOBIN 11.8 g/dl (12.0-15.5); MEAN CORPUSCULAR HEMOGLOBIN 30.7 pg (27.0-33.0); MEAN CORPUSCULAR HGB CONC 31.9 g/dl (32.0-36.5); MEAN CORPUSCULAR VOLUME 96.4 fl (80.0-96.0); PLATELET COUNT, AUTOMATED 271 10^3/uL (150-450); RED BLOOD COUNT 3.84 10^6/uL (4.00-5.40); WHITE BLOOD COUNT 8.1 10^3/uL (4.0-10.0)
[2021-10-13 17:58] LABS: CREATININE,RANDOM URINE 32.2 MG/DL
[2021-10-13 18:00] LABS: ALT/SGPT 55 U/L (12-78); BILIRUBIN,TOTAL 0.5 MG/DL (0.2-1.0); CREATININE FOR GFR 0.63 MG/DL (0.55-1.30); GLOMERULAR FILTRATION RATE > 60.0 (>60); LDH LACTATE DEHYDROGENASE 234 U/L (84-246); URIC ACID 7.9 MG/DL (2.6-6.0)
[2021-10-13 21:59] LABS: TOTAL PROTEIN,RANDOM URINE < 5.0 MG/DL (0.0-12.0)
== END ==
LOC: M PLALAB 14:34
PROVIDERS: ATTEND Advanced Practice Midwife
DX: O13.5 Gestational [pregnancy-induced] hypertension without significant proteinuria, complicating the puerperium (principal)

== ENCOUNTER → 2022-06-06 | Outpatient (CLI) | payer OTHER | LOC: M RAD 12:00 | PROVIDERS: ATTEND Nurse Practitioner Family | DX: K62.5 Hemorrhage of anus and rectum (principal); K68.9 Other disorders of retroperitoneum; R10.32 Left lower quadrant pain; R19.8 Other specified symptoms and signs involving the digestive system and abdomen; Z80.0 Family history of malignant neoplasm of digestive organs; Z83.71 Family history of colonic polyps ==

== ENCOUNTER → 2022-06-07 | Outpatient (REF) | payer OTHER | LOC: M LAB REF 11:06 | PROVIDERS: ATTEND Nurse Practitioner Family | DX: K62.5 Hemorrhage of anus and rectum (principal); K62.89 Other specified diseases of anus and rectum; R10.32 Left lower quadrant pain; R19.8 Other specified symptoms and signs involving the digestive system and abdomen; Z80.0 Family history of malignant neoplasm of digestive organs; Z83.71 Family history of colonic polyps ==

== ENCOUNTER → 2022-08-20 | Outpatient (CLI) | payer OTHER ==
[~2022-08-20] MED LIST changes: -LABE100T5 PO; +LABE100T71 PO
[2022-08-20 15:09] LABS: BASO % 0.6 % (0.0-1.0); EOS # 0.1 10^3/uL (0.0-0.5); HEMATOCRIT 40.5 % (36.0-47.0); HEMOGLOBIN 12.9 g/dl (12.0-15.5); LYMPH % 39.5 % (24.0-44.0); MEAN CORPUSCULAR HEMOGLOBIN 29.4 pg (27.0-33.0); MEAN CORPUSCULAR HGB CONC 31.9 g/dl (32.0-36.5); MEAN CORPUSCULAR VOLUME 92.3 fl (80.0-96.0); MONO # 0.6 10^3/uL (0.0-0.8); MONO % 11.6 % (2.0-8.0); NEUTROPHILS # 2.4 10^3/uL (1.5-8.5); NEUTROPHILS % 47.1 % (36.0-66.0); PLATELET COUNT, AUTOMATED 211 10^3/uL (150-450); RED BLOOD COUNT 4.39 10^6/uL (4.00-5.40); WHITE BLOOD COUNT 5.2 10^3/uL (4.0-10.0)
[2022-08-20 15:59] LABS: ALBUMIN 4.1 GM/DL (3.2-5.2); ALT/SGPT 24 U/L (12-78); BILIRUBIN,TOTAL 0.4 MG/DL (0.2-1.0); BLOOD UREA NITROGEN 9 MG/DL (7-18); CALCIUM LEVEL 9.4 MG/DL (8.5-10.1); CARBON DIOXIDE LEVEL 28 MEQ/L (21-32); CHLORIDE LEVEL 103 MEQ/L (98-107); CHOLESTEROL LEVEL 236 MG/DL (<200); CHOLESTEROL RISK RATIO 4.627 (<5); CREATININE FOR GFR 0.63 MG/DL (0.55-1.30); GLOMERULAR FILTRATION RATE > 60.0 (>60); GLUCOSE, FASTING 79 MG/DL (70-100); HDL CHOLESTEROL 51 MG/DL (>40); LDL CHOLESTEROL 148 MG/DL (<100); NON-HDL-C 185 MG/DL; POTASSIUM SERUM 4.1 MEQ/L (3.5-5.1); SODIUM LEVEL 134 MEQ/L (136-145); TOTAL PROTEIN 7.9 GM/DL (6.4-8.2); TRIGLYCERIDES LEVEL 184 MG/DL (<150)
[2022-08-20 16:01] LABS: HEMOGLOBIN A1c 5.5 %
[2022-08-20 16:40] LABS: TOTAL 25(OH) VITAMIN D 56.6 NG/ML (30.0-100.0)
== END ==
LOC: M WUC 11:07
PROVIDERS: ATTEND Nurse Practitioner Family
DX: Z00.01 Encounter for general adult medical examination with abnormal findings (principal); Z13.220 Encounter for screening for lipoid disorders; Z13.1 Encounter for screening for diabetes mellitus

== ENCOUNTER → 2023-06-03 | Outpatient (CLI) | payer OTHER ==
[2023-06-03 14:20] LABS: FREE T4 0.93 NG/DL (0.89-1.76); PROLACTIN 3.28 NG/ML
[2023-06-03 14:21] LABS: THYROID STIMULATING HORMONE 1.838 uIU/ML (0.55-4.78)
[2023-06-03 16:04] LABS: HEMOGLOBIN A1c 5.3 % (4.0-6.0)
[2023-06-07 05:10] LABS: 17 HYDROXY PROGESTERONE < 10 ng/dL (.); TESTOSTERONE FREE (DIRECT) 0.8 pg/mL (0.0-4.2)
== END ==
LOC: M LAB 13:21
PROVIDERS: ATTEND Nurse Practitioner Family
DX: N92.6 Irregular menstruation, unspecified (principal)

== ENCOUNTER → 2023-07-30 | Outpatient (REF) | payer OTHER | LOC: M SFHCWAGY 10:00 | PROVIDERS: ATTEND Nurse Practitioner Family | DX: Z12.4 Encounter for screening for malignant neoplasm of cervix (principal) ==

== ENCOUNTER → 2023-09-24 | Outpatient (CLI) | payer OTHER | LOC: M WHC 07:18 | PROVIDERS: ATTEND Registered Nurse | DX: N92.6 Irregular menstruation, unspecified (principal); R93.89 Abnormal findings on diagnostic imaging of other specified body structures ==